=== PATIENT | male | born 2000 ===

== ENCOUNTER 2019-09-04 20:17 | Emergency (ER) | payer SELFPAY ==
--- NOTE | 2019-09-04 22:08 | ER ---
Nurse's Notes [facility] Name: Fazal Chand Age: 19 yrs Sex: Male : 2000 Arrival Date: 09/04/2019 Time: 20:19 Bed 19 Private MD: Diagnosis: Acute pharyngitis, unspecified Presentation: 09/04 20:36 Presenting complaint: Patient states: Fever and sore throat started Monday. And today ca1 it just feels like I am swallowing blood, I could just taste the Iron. My neck also hurts and I am nauseous. Transition of care: patient was not received from another setting of care. Onset of symptoms was September 04, 2019. Risk Assessment: Do you want to hurt yourself or someone else? Patient reports no desire to harm self or others. Initial Sepsis Screen: Does the patient meet any 2 criteria? No. Patient's initial sepsis screen is negative. Does the patient have a suspected source of infection? No. Patient's initial sepsis screen is negative. Care prior to arrival: None. 20:36 Method Of Arrival: Ambulatory ca1 20:36 Acuity: BRYAN 4 ca1 Historical: - Allergies: 20:38 No Known Allergies; ca1 - Home Meds: 20:38 None [Active]; ca1 - PMHx: 20:38 None; ca1 - PSHx: 20:38 None; ca1 - Immunization history:: Adult Immunizations up to date, . - Coronavirus screen:: The patient has NOT traveled to [place] in the past 14 days. The patient has NOT had contact with known/suspected case of Coronavirus?. - Social history:: Smoking status: Patient reports the use of cigarette tobacco products, smokes one-half pack cigarettes per day. - Ebola Screening: : Patient negative for fever greater than or equal to 101.5 degrees Fahrenheit, and additional compatible Ebola Virus Disease symptoms Patient denies exposure to infectious person Patient denies travel to an Ebola-affected area in the 21 days before illness onset No symptoms or risks identified at this time. Screenin:00 Abuse screen: Denies threats or abuse. Denies injuries from another. Nutritional wh screening: No deficits noted. Tuberculosis screening: No symptoms or risk factors identified. Fall Risk None identified. Assessment: 21:00 General: Appears in no apparent distress. Behavior is calm, cooperative, appropriate wh for age. Pain: Complains of pain in sore throat. Neuro: Level of Consciousness is awake, alert, obeys commands, Oriented to person, place, time, situation, Appropriate for age. Cardiovascular: Heart tones S1 S2. Respiratory: Reports cough that is Airway is patent Respiratory effort is even, unlabored, Respiratory pattern is regular, symmetrical, Breath sounds are clear bilaterally. GI: Abdomen is flat, non-distended. : No signs and/or symptoms were reported regarding the genitourinary system. EENT: Throat is pink. Derm: Skin is intact, is healthy with good turgor, Skin is pink, warm \T\ dry. normal. Musculoskeletal: Circulation, motion, and sensation intact. 22:18 Reassessment: Patient appears in no apparent distress at this time. No changes from previously documented assessment. Patient and/or family updated on plan of care and expected duration. Pain level reassessed. Patient is alert, oriented x 3, equal unlabored respirations, skin warm/dry/pink. Vital Signs: 20:38 BP 106 / 70; Pulse 96; Resp 16 S; Temp 99.4(O); Pulse Ox 97% on R/A; Weight 99.79 kg ca1 (R); Height 5 ft. 9 in. (175.26 cm) (R); 22:00 BP 122 / 77; Pulse 81; Resp 18; Pulse Ox 98% on R/A; wh 20:38 Body Mass Index 32.49 (99.79 kg, 175.26 cm) ca1 ED Course: 20:19 Patient arrived in ED. ag3 20:38 Triage completed. ca1 20:38 Arm band placed on right wrist. ca1 20:40 Anish Adamson PA is PHCP. cp 20:40 Holland Alexandre MD is Attending Physician. cp 20:40 Devin Lopes is Primary Nurse. wh 20:54 Strep Sent. ca1 21:00 Patient has correct armband on for positive identification. Bed in low position. Call wh light in reach. Side rails up X 1. Pulse ox on. NIBP on. 22:20 No provider procedures requiring assistance completed. Patient did not have IV access wh during this emergency room visit. Administered Medications: No medications were administered Outcome: 22:07 Discharge ordered by . cp 22:20 Discharged to home ambulatory, with family. wh 22:20 Condition: stable 22:20 Discharge instructions given to patient, family, Instructed on discharge instructions, follow up and referral plans. medication usage, POC Demonstrated understanding of instructions, follow-up care, medications, POC Prescriptions given X 1. 22:21 Patient left the ED. wh Signatures: Anish Adamson PA PA cp [place], Winsy wh Gomez, Alice ag3 Kandy Patel RN RN ca1
--- NOTE | 2019-09-04 22:08 | EDPHYS ---
Physician Documentation [facility] Name: Fazal Chand Age: 19 yrs Sex: Male : 2000 Arrival Date: 09/04/2019 Time: 20:19 Bed 19 Private MD: ED Physician Holland Alexandre HPI: 09/04 20:46 This 19 yrs old Male presents to ER via Ambulatory with complaints of Sore Throat. cp 20:46 The patient presents with sore throat. The patient describes throat pain as constant. cp Onset: The symptoms/episode began/occurred 2 day(s) ago. Severity of symptoms: in the emergency department the symptoms are unchanged, despite home interventions. Associated signs and symptoms: Pertinent positives: Sore throat Pertinent negatives cough, diarrhea, dysphagia, flu-like symptoms, headache, rhinorrhea, vomiting. Historical: - Allergies: 20:38 No Known Allergies; ca1 - Home Meds: 20:38 None [Active]; ca1 - PMHx: 20:38 None; ca1 - PSHx: 20:38 None; ca1 - Immunization history:: Adult Immunizations up to date, . - Coronavirus screen:: The patient has NOT traveled to [place] in the past 14 days. The patient has NOT had contact with known/suspected case of Coronavirus?. - Social history:: Smoking status: Patient reports the use of cigarette tobacco products, smokes one-half pack cigarettes per day. - Ebola Screening: : Patient negative for fever greater than or equal to 101.5 degrees Fahrenheit, and additional compatible Ebola Virus Disease symptoms Patient denies exposure to infectious person Patient denies travel to an Ebola-affected area in the 21 days before illness onset No symptoms or risks identified at this time. ROS: 20:55 Constitutional: Positive for body aches, chills, Negative for fever, poor PO intake. cp 20:55 Eyes: Negative for injury, pain, redness, and discharge. cp 20:55 ENT: Positive for sore throat, Negative for drainage from ear(s), ear pain, difficulty swallowing, difficulty handling secretions. 20:55 Neck: Negative for pain with movement, pain at rest, stiffness. 20:55 Respiratory: Negative for cough, wheezing. 20:55 Skin: Negative for rash. 20:55 Neuro: Negative for altered mental status, headache. 20:55 All other systems are negative. Exam: 21:00 Constitutional: The patient appears in no acute distress, alert, awake, non-toxic, well cp developed, well nourished. 21:00 Head/Face: Normocephalic, atraumatic. cp 21:00 Eyes: Periorbital structures: appear normal, Conjunctiva: normal, no exudate, no injection, Lids and lashes: appear normal, bilaterally. 21:00 ENT: External ear(s): are unremarkable, Ear canal(s): are normal, clear, TM's: bulging, is not appreciated, bilaterally, dullness, bilaterally, erythema, is not appreciated, bilaterally, Nose: is normal, Mouth: Lips: moist, Oral mucosa: moist, Posterior pharynx: Airway: no evidence of obstruction, patent, Tonsils: with erythema, no enlargement, no exudate, swelling, is not appreciated, erythema, that is moderate, exudate, is not appreciated, Voice: is normal. 21:00 Neck: ROM/movement: is normal, is supple, no meningismus, no nuchal rigidity, Lymph nodes: no appreciated lymphadenopathy. 21:00 Chest/axilla: Inspection: normal. 21:00 Cardiovascular: Rate: normal, Rhythm: regular. 21:00 Respiratory: the patient does not display signs of respiratory distress, Respirations: normal, no use of accessory muscles, labored breathing, is not present, Breath sounds: are clear throughout, no decreased breath sounds, no stridor, no wheezing. 21:00 Abdomen/GI: Exam negative for discomfort, distension, guarding, Inspection: abdomen appears normal. 21:00 Skin: no rash present. Vital Signs: 20:38 BP 106 / 70; Pulse 96; Resp 16 S; Temp 99.4(O); Pulse Ox 97% on R/A; Weight 99.79 kg ca1 (R); Height 5 ft. 9 in. (175.26 cm) (R); 22:00 BP 122 / 77; Pulse 81; Resp 18; Pulse Ox 98% on R/A; wh 20:38 Body Mass Index 32.49 (99.79 kg, 175.26 cm) ca1 MDM: 20:44 Patient medically screened. cp 21:00 Differential diagnosis: group A strep tonsillitis, influenza, peritonsillar abscess cp pharyngitis, retropharyngeal abcess. 22:06 Data reviewed: vital signs, nurses notes, lab test result(s). 22:06 Counseling: I had a detailed discussion with the patient and/or guardian regarding: the cp historical points, exam findings, and any diagnostic results supporting the discharge/admit diagnosis, to return to the emergency department if symptoms worsen or persist or if there are any questions or concerns that arise at home. 09/04 20:40 Order name: Strep ca1 09/04 21:58 Order name: Group A Streptococcus Rapid Sc EDMS Administered Medications: No medications were administered Disposition: 23:07 Co-signature as Attending Physician, Holland Alexandre MD. rn Disposition: 09/04/19 22:07 Discharged to Home. Impression: Acute pharyngitis, unspecified. - Condition is Stable. - Discharge Instructions: Sore Throat, Form - Excuse from Work, School, or Physical Activity. - Prescriptions for Tessalon Perles 100 mg Oral Capsule - take 1 capsule by ORAL route every 8 hours As needed; 15 capsule. - Medication Reconciliation Form, Thank You Letter, Antibiotic Education, Prescription Opioid Use, Work release form form. - Follow up: Private Physician; When: 2 - 3 days; Reason: Worsening of condition. - Problem is new. - Symptoms have improved. Signatures: Dispatcher [employer] EDMS Holland Alexandre MD MD rn Anish Adamson PA PA Devin Lopes Kandy Patel RN RN ca1 Corrections: (The following items were deleted from the chart) 22:21 22:07 09/04/2019 22:07 Discharged to Home. Impression: Acute pharyngitis, unspecified. Condition is Stable. Forms are Medication Reconciliation Form, Thank You Letter, Antibiotic Education, Prescription Opioid Use. Follow up: Private Physician; When: 2 - 3 days; Reason: Worsening of condition. Problem is new. Symptoms have improved. cp
[2019-09-06 03:34] VITALS: TEMP 99.4
[2019-09-06 03:58] VITALS: BP 122/77; O2SAT 98
== END 2019-09-04 22:21 | disposition home or self-care (01) ==
LOC: ER 20:17
DX: J02.9 Acute pharyngitis, unspecified (principal); F17.210 Nicotine dependence, cigarettes, uncomplicated
CPT/HCPCS: 87070; 87081; 99283